=== PATIENT | male | born 1945 | race Caucasian/White ===

== ENCOUNTER 2020-11-21 01:45 | Emergency (ER) | payer MEDICARE, BC ==
[2020-11-21] MEDS ORDERED: Fentanyl 100 MCG/2 ML VIAL ONE (02:04)
[2020-11-21 02:28] LABS: #Basophils 0.1 thou/uL (0.0-0.2); #Lymphocytes 1.3 thou/uL (1.20-3.40); #Monocytes 0.4 thou/uL (0.11-0.59); #Neutrophils 7.3 thou/uL (1.40-6.50); %Basophils 0.8 % (0.0-1.0); %Eosinophils 0.2 % (0.0-10.0); %Lymphocytes 14.3 % (21.0-51.0); %Monocytes 4.2 % (0.0-10.0); %Neutrophils 80.4 % (42.0-75.0); Hemoglobin 14.5 g/dL (14.0-18.0); Mean Corpuscular HGB CONC 33.2 g/dL (32.0-36.0); Mean Corpuscular Hemoglobin 30.5 pg (27.0-31.0); Mean Corpuscular Volume 91.7 fL (78.0-98.0); Mean Platelet Volume 8.5 fL (7.4-10.4); Platelet Count 183 thou/uL (130-400); RBC Distribution Width 14.8 % (11.5-14.5); Red Blood Cell (RBC) Count 4.76 mill/uL (4.70-6.10); White Blood Cell (WBC) Count 9.1 thou/uL (4.8-10.8)
[2020-11-21 02:40] LABS: AST (SGOT) 19 U/L (5-34); Calcium 8.5 mg/dL (7.8-10.44); Carbon Dioxide 31 mmol/L (23-31); Protein, Total 5.6 g/dL (5.8-8.1)
[2020-11-21 02:53] LABS: ALT (SGPT) 32 U/L (8-55); Albumin 3.1 g/dL (3.4-4.8); Alkaline Phosphatase 128 U/L (40-110); BUN (Urea Nitrogen) 10 mg/dL (8.4-25.7); CK (CPK) 33 U/L (30-200); Calc. Creatinine Clearance 0 mL/min (70-130); Chloride 98 mmol/L (98-107); Globulin 2.5 g/dL (2.4-3.5); Glucose 289 mg/dL (83-110); Sodium 141 mmol/L (136-145)
[2020-11-21 02:59] LABS: Anion Gap 15 mmol/L (10-20)
[2020-11-21] MEDS ORDERED: Potassium Chloride 20 MEQ TAB ONE (02:59)
[2020-11-21] MEDS ORDERED: cefTRIAXone\\ROCEPHIN 1 GM VIAL ONE (03:35)
[2020-11-21] MEDS ORDERED: Aspirin Chewable 81 MG TAB ONE (09:35)
[2020-11-21] MEDS ORDERED: Iopamidol 370 76% 100 ML VIAL ONE (11:08)
[2020-11-21] MEDS ORDERED: Carvedilol 25 MG TAB PO SCH (15:15)
[2020-11-21] MEDS ORDERED: Glimepiride 2 MG TAB PO SCH (15:15)
[2020-11-21] MEDS ORDERED: HYDROcodone/Acetaminophen 10/325 mg Tablet PO SCH (15:15)
[2020-11-21] MEDS ORDERED: Hydrochlorothiazide 25 MG TAB PO SCH (15:15)
[2020-11-21] MEDS ORDERED: Lisinopril 20 MG TAB PO SCH (15:15)
[2020-11-21] MEDS ORDERED: methylPREDNISolone Sod Succ/PF 125 MG/2 ML VIAL ONE (23:56)
[2020-11-22] MEDS ORDERED: Sodium Chloride 0.9% 100 ML ONE (08:09)
[2020-11-22] MEDS ORDERED: cefTRIAXone\\ROCEPHIN 1 GM VIAL ONE (08:09)
[2020-11-22 10:09] LABS: Anion Gap 14 mmol/L (10-20); BUN (Urea Nitrogen) 12 mg/dL (8.4-25.7); Calc. Creatinine Clearance 0 mL/min (70-130); Calcium 8.5 mg/dL (7.8-10.44); Carbon Dioxide 33 mmol/L (23-31); Chloride 101 mmol/L (98-107); Glucose 396 mg/dL (83-110); Potassium 3.6 mmol/L (3.5-5.1); Sodium 144 mmol/L (136-145)
[2020-11-22] MEDS ORDERED: Insulin Regular 300 UNITS/3 ML VIAL ONE (10:58)
[2020-11-22] MEDS ORDERED: Potassium Chloride 10 MEQ TAB ONE (11:26)
[2020-11-22] MEDS ORDERED: JARDIANCE 25 MG PO SCH (13:00)
[2020-11-22] MEDS ORDERED: Aspirin 81 mg Enteric Coated Tablet PO SCH (13:00)
[2020-11-22] MEDS ORDERED: Furosemide 40 MG TAB PO SCH (13:00)
[2020-11-22] MEDS ORDERED: Lisinopril 20 MG TAB PO SCH (13:00)
[2020-11-22] MEDS ORDERED: Gabapentin 300 MG CAP PO SCH (13:00)
[2020-11-22 15:54] LABS: SARS-CoV-2 PCR by NAA Not Detected (NotDetected)
[2020-11-22] MEDS ORDERED: Potassium Chloride 20 MEQ TAB PO SCH (17:00)
[2020-11-22] MEDS ORDERED: metFORMIN 500 MG TAB PO SCH (17:00)
[2020-11-22] MEDS ORDERED: Carvedilol 25 MG TAB PO SCH (17:00)
[2020-11-23] MEDS ORDERED: Glimepiride 2 MG TAB PO SCH (07:30)
[2020-11-23] MEDS ORDERED: Aspirin 81 mg Enteric Coated Tablet PO SCH (09:00)
[2020-11-23] MEDS ORDERED: Lisinopril 20 MG TAB PO SCH (09:00)
[2020-11-23] MEDS ORDERED: JARDIANCE 25 MG PO SCH (09:00)
[2020-11-23] MEDS ORDERED: Furosemide 40 MG TAB PO SCH (09:00)
[2020-11-23] MEDS ORDERED: Gabapentin 300 MG CAP PO SCH (09:00)
== END 2020-11-21 18:00 | disposition short-term general hospital (02) ==
LOC: BURERS 01:45
DX: J18.9 Pneumonia, unspecified organism (principal); E87.6 Hypokalemia; R60.0 Localized edema; E11.9 Type 2 diabetes mellitus without complications; E78.5 Hyperlipidemia, unspecified; I10 Essential (primary) hypertension; Z79.899 Other long term (current) drug therapy; Z79.82 Long term (current) use of aspirin
CPT/HCPCS: 71045; 71275; 80048; 80053; 82550; 82962; 83605; 83880; 84484; 85025; 87040; 93005; 94760; U0003; U0005; 36415; 36416; 87635; 96365; 96366; 96367; 96374; 96375; J0696; J1815; J2930; J3010; J3370; J3490; J7620; Q9967